=== PATIENT | female | born 1995 | race Hispanic/Latino ===

== ENCOUNTER 2019-04-21 21:49 | Emergency (ER) | payer SELFPAY ==
[~2019-04-21 21:49] MED LIST: Iopamidol 370 76% 100 ML VIAL ONE
[2019-04-21 22:21] LABS: #Basophils 0.1 thou/uL (0.0-0.2); #Eosinphils 0.4 thou/uL (0.0-0.7); #Lymphocytes 3.4 thou/uL (1.20-3.40); #Monocytes 0.9 thou/uL (0.11-0.59); #Neutrophils 5.9 thou/uL (1.40-6.50); %Basophils 0.8 % (0.0-1.0); %Eosinophils 3.5 % (0.0-10.0); %Lymphocytes 31.8 % (21.0-51.0); %Monocytes 8.1 % (0.0-10.0); %Neutrophils 55.9 % (42.0-75.0); Hemoglobin 10.8 g/dL (12.0-16.0); Mean Corpuscular HGB CONC 33.1 g/dL (32.0-36.0); Mean Corpuscular Hemoglobin 28.6 pg (27.0-31.0); Mean Corpuscular Volume 86.5 fL (78.0-98.0); Platelet Count 427 thou/uL (130-400); RBC Distribution Width 11.6 % (11.5-14.5); Red Blood Cell (RBC) Count 3.78 mill/uL (4.20-5.40); White Blood Cell (WBC) Count 10.6 thou/uL (4.8-10.8)
[2019-04-21 22:31] LABS: BHCG - Serum Negative (NEGATIVE); Pregs Control Bar Appear? YES (CONTROL BAR)
[2019-04-21 22:35] LABS: ALT (SGPT) 12 U/L (8-55); AST (SGOT) 13 U/L (5-34); Albumin 4.6 g/dL (3.5-5.0); Alkaline Phosphatase 69 U/L (40-110); Anion Gap 17 mmol/L (10-20); BUN (Urea Nitrogen) 13 mg/dL (7.0-18.7); Bilirubin, Total 0.2 mg/dL (0.2-1.2); Calc. Creatinine Clearance 0 mL/min (70-130); Calcium 9.8 mg/dL (7.8-10.44); Carbon Dioxide 23 mmol/L (22-29); Chloride 102 mmol/L (98-107); Estimated GFR-MDRD Greater than 90; Globulin 3.3 g/dL (2.4-3.5); Glucose 107 mg/dL (70-105); Lipase 18 U/L (8-78); Potassium 3.7 mmol/L (3.5-5.1); Protein, Total 7.9 g/dL (6.0-8.3); Sodium 138 mmol/L (136-145)
--- NOTE | 2019-04-21 23:04 | CT ---
CT HEAD WITHOUT IV CONTRAST COMPARISON: None HISTORY: Syncopal episode while washing dishes. Patient fell and now has pain on right side of body. Right si ded stabbing pain. TECHNIQUE: Axial CT imaging at 5 mm intervals from vertex through skull base without contrast FINDINGS: There is no evidence of an acute infarction, hemorrhage, mass effect, or midline shift. The ventricul ar system is normal in size, shape, and position. Visualized paranasal sinuses are clear. Osseous structures appear intact. IMPRESSION: 1. No acute intracranial abnormality demonstrated.
--- NOTE | 2019-04-21 23:13 | CT ---
EXAM: CT cervical spine PROVIDED CLINICAL HISTORY: Pain on right side of body after a fall. Right-sided stabbing pain. TECHNIQUE: Contiguous axial CT images are obtained through the cervical spine from the skull base to the T3-4 le diony. Sagittal and coronal reformatted images are provided. COMPARISON: None FINDINGS: No evidence for fracture or traumatic subluxation. No prevertebral soft tissue swelling apparent. Visualized lung apices appear clear. Visualized thyroid gland demonstrates a grossly normal nonenhanced CT appearance. Small mucous retention cyst is seen in the right maxillary antrum. Prominent conchae bullosa are seen in each middle nasal turbinate. IMPRESSION: No evidence for fracture or traumatic subluxation.
--- NOTE | 2019-04-21 23:24 | CT ---
CT ABDOMEN AND PELVIS WITH IV CONTRAST 04/21/2019 CLINICAL INFORMATION: Pain right side of body after a fall. COMPARISON: None. Technique: Multiple contiguous axial CT images are obtained through the abdomen and pelvis with IV contrast. Cor onal reformatted images are provided. FINDINGS: Lower Chest: Minimal atelectasis is present at the left lung base. The lung bases are clear. No pleur al effusion is present. Vessels: The abdominal aorta is normal in caliber without evidence of an aortic dissection. Abdomen: Portal vein:Patent Gallbladder: Decompressed and not well evaluated. Liver: within normal limits. Spleen: within normal limits. Pancreas: within normal limits. Adrenals: within normal limits. Kidneys: A scattered subcentimeter too small to characterize hypodense lesions are seen in the right kidney. The left kidney has a normal CT appearance. There is mild enhancement of the treviño of the right ureter with question of slight periureteral inflammatory changes. Infection cannot be entirely excluded. Correlation with urinalysis is recommended. Bowel: Normal caliber. Appendix: The appendix is visualized and normal in caliber. Peritoneum: No ascites or free air; no fluid collection. Mesentery and Retroperitoneum: No enlarged mesenteric or retroperitoneal lymph nodes. Abdominal Wall: within normal limits. Pelvis: Reproductive Organs: No pelvic masses. Pelvis within normal limits. Bladder: within normal limits. Bones: Bilateral pars defects are seen at L5 with slight grade 1 anterolisthesis of L5 on S1. IMPRESSION: 1. Mild enhancement of the treviño of the right ureter with suggestion of minimal periureteral inflamma tory stranding. Findings could be related to infection. Correlation with urinalysis is recommended. 2. Subcentimeter too small to characterize hypodense lesions right kidney. 3. No CT evidence of appendicitis. 4. Spondylolisthesis lumbosacral junction. No acute fracture or traumatic subluxation is seen involvi ng the lumbar spine. 5. No parenchymal organ injury is seen.
[2019-04-21 23:29] LABS: Bilirubin Negative (Negative); Blood, Urine Large (Negative); Clarity Slightly Cloudy (Clear); Glucose, Urine (Dipstick) Negative (Negative); Leukocyte Moderate (Negative); Nitrite Negative (Negative); Protein, Urine (Dipstick) Trace mg/dL (Neg-Trace); Urobilinogen 0.2 mg/dL (Less than 2)
[2019-04-21 23:31] LABS: Bacteria/HPF 2+ HPF (None Seen); RBC/HPF Greater than 50 HPF (0-3); WBC/HPF 21-50 HPF (0-3)
[2019-04-22] MEDS ORDERED: Cephalexin 250 MG CAP ONE (00:10)
[2019-04-22] MEDS ORDERED: Ketorolac Tromethamine 30 MG/ML VIAL ONE (00:10)
[2019-04-22] MEDS ORDERED: Ondansetron PF 4 MG/2 ML Vial ONE (00:10)
== END 2019-04-22 00:31 | disposition home or self-care (01) ==
LOC: NAV ERS 21:49
DX: N39.0 Urinary tract infection, site not specified (principal); R55 Syncope and collapse; R11.0 Nausea
CPT/HCPCS: 36415; 70450; 72125; 74177; 80053; 81003; 81015; 83605; 83690; 84703; 85025; 87086; 93005; 94760; 96361; 96374; 96375; J1885; J2405; L0120